=== PATIENT | female | born 1970 | race African-American/Black ===

== ENCOUNTER 2016-11-28 22:01 | Emergency (ER) | payer BC, OTHER ==
[~2016-11-28] VITALS: Ht 160 cm; Wt 86.2 kg
[~2016-11-28 22:01] MED LIST: TRAM-48 PO
[2016-11-28 22:10] VITALS: BP 144/79
--- NOTE | 2016-11-28 23:00 | PHYS DOC ---
Past Medical History Past Medical History: No Pertinent History Past Surgical History: Tubal ligation Alcohol Use: Occasionally Drug Use: None Adult General Chief Complaint Chief Complaint: LOWER EXT PAIN [facility] HPI Patient is a 46 year old female presents emergency department stating that she has a 2 week history of right foot. Into the right knee pain. She denies any injury traumas to the foot or knee area. She denies any falls. Patient denies taking anything for pain or discomfort. She states that the pain is increased more when she wakes up in the morning and after she's been sitting for long period of time. Review of Systems Review of Systems Constitutional: Denies fever or chills [] Eyes: Denies change in visual acuity, redness, or eye pain [] HENT: Denies nasal congestion or sore throat [] Respiratory: Denies cough or shortness of breath [] Cardiovascular: No additional information not addressed in HPI [] GI: Denies abdominal pain, nausea, vomiting, bloody stools or diarrhea [] : Denies dysuria or hematuria [] Musculoskeletal: Denies back pain complaint of right knee, right foot pain Integument: Denies rash or skin lesions [] Neurologic: Denies headache, focal weakness or sensory changes [] Endocrine: Denies polyuria or polydipsia [] Allergies Allergies Allergies Coded Allergies Type Severity Reaction Last Updated Verified No Known Drug Allergies 04/22/16 No Physical Exam Physical Exam Constitutional: Well developed, well nourished, no acute distress, non-toxic appearance. [] HENT: Normocephalic, atraumatic, bilateral external ears normal, oropharynx moist, no oral exudates, nose normal. [] Eyes: PERRLA, EOMI, conjunctiva normal, no discharge. [] Neck: Normal range of motion, no tenderness, supple, no stridor. [] Cardiovascular:Heart rate regular rhythm Lungs & Thorax: No respiratory distress noted Skin: Warm, dry, no erythema, no rash. [] Back: No tenderness Extremities: No tenderness noted to the right knee area. Patient was noted have tenderness on the right foot at the plantar fasciitis area., no cyanosis, no clubbing, ROM intact, no edema. [] Neurologic: Alert and oriented X 3, normal motor function, normal sensory function, no focal deficits noted. [] Psychologic: Affect normal, judgement normal, mood normal. [] Current Patient Data Vital Signs Vital Signs Date Time Temp Pulse Resp B/P (MAP) Pulse Ox O2 Delivery O2 Flow Rate FiO2 11/28/16 22:10 98.1 81 16 97 Room Air 98.1 EKG EKG [] Radiology/Procedures Radiology/Procedures [] Course & Med Decision Making Course & Med Decision Making Pertinent Labs and Imaging studies reviewed. (See chart for details) Spoke with patient regards to wear supportive shoes, or orthotics. Spoke with patient regards to using nonsteroidal anti-inflammatories for pain and discomfort as well as ice packs. Patient will be discharged home with recommendations to follow-up with her primary care physician. Patient agrees with discharge instructions truck treatment regimens and follow-up recommendations. [] Dragon Disclaimer Dragon Disclaimer This electronic medical record was generated, in whole or in part, using a voice recognition dictation system. Departure Departure Impression: Primary Impression: Right foot pain Additional Impression: Right knee pain Disposition: 01 HOME, SELF-CARE Condition: STABLE Referrals: NO PCP (PCP) Patient Instructions: Knee Pain, [id number], Plantar Fasciitis Additional Instructions: Activity as tolerated. It is important that you obtain good supportive shoes to help with the following of your arches. Nonsteroidal anti-inflammatories such as ibuprofen or Aleve. Ice packs on 20 minutes off 20 minutes several times a day. Follow-up with her primary care physician in the next week. Return back to emergency department signs and symptoms of become worse. Problem Qualifiers CAROLE ORTA APRN Nov 28, 2016 23:00
== END 2016-11-28 23:11 | disposition home or self-care (01) ==
LOC: ER 22:01
DX: M79.671 Pain in right foot (principal); M25.561 Pain in right knee
CPT/HCPCS: 99281

== ENCOUNTER 2017-08-10 04:50 | Emergency (ER) | payer BC ==
[2017-08-10] MEDS: IBUPROFEN 800 MG TABLET. PO (05:56)
== END 2017-08-10 06:21 | disposition home or self-care (01) ==
LOC: ER 04:50
DX: S93.401A Sprain of unspecified ligament of right ankle, initial encounter (principal); Z98.51 Tubal ligation status; X58.XXXA Exposure to other specified factors, initial encounter; Y93.89 Activity, other specified; Y92.89 Other specified places as the place of occurrence of the external cause; Y99.8 Other external cause status
CPT/HCPCS: 73610; 99284